=== PATIENT | female | born 1965 | race Caucasian/White ===

== ENCOUNTER 2017-04-03 17:25 | Inpatient (IN) | payer MEDICAID ==
[~2017-04-03] VITALS: Ht 170.2 cm; Wt 87.5 kg
[~2017-04-03 17:25] MED LIST: ALBU10PO INH; ALBU2.5V11 NEB; FLUT1DIS3 INH; LEVO750T26 PO; PRED20TA PO; TIOT18CA INH
[2017-04-03] MEDS ORDERED: MORPHINE SULFATE 4 MG/ML, 1ML IVPush PRN (18:00)
[2017-04-03] MEDS ORDERED: DIPHENHYDRAMINE 50 MG/ML, 1ML IVPush ONE (18:00)
[2017-04-03] MEDS ORDERED: METOCLOPRAMIDE 5 MG/ML, 2ML IVPush ONE (18:00)
[2017-04-03] MEDS ORDERED: SODIUM CHLORIDE 0.9% 1,000ML IVBOLUS ONE (18:00)
[2017-04-03] MEDS ORDERED: FAMOTIDINE 20 MG/2 ML IVP ONE (18:00)
[2017-04-03] MEDS ORDERED: SODIUM CHLORIDE FLUSH 10ML SYR IVF ONE (18:00)
[2017-04-03] MEDS ORDERED: MAALOX/HYOSCYAMINE/LIDOCAINE 45 ML BTL PO ONE (18:00)
[2017-04-03] MEDS ORDERED: DIPHENHYDRAMINE 50 MG/ML, 1ML ONE (18:05)
[2017-04-03] MEDS ORDERED: FAMOTIDINE 20 MG/2 ML ONE (18:05)
[2017-04-03] MEDS ORDERED: METOCLOPRAMIDE 5 MG/ML, 2ML ONE (18:05)
[2017-04-03] MEDS ORDERED: MORPHINE SULFATE 4 MG/ML, 1ML ONE (18:05)
[2017-04-03 18:14] LABS: HEMATOCRIT 45.9 % (34.6-47.8); HEMOGLOBIN 14.8 g/dL (11.7-16.4)
[2017-04-03 18:26] LABS: ASPARTATE AMINO TRANSFERASE 11 U/L (15-37); BLOOD UREA NITROGEN 38 mg/dL (7-18)
[2017-04-03] MEDS ORDERED: hydrALAzine 20 MG/ML, 1ML IVPush PRN (20:30)
[2017-04-03] MEDS ORDERED: SUCRALFATE 1 GM/10 ML UDC PO SCH (21:00)
[2017-04-03] MEDS ORDERED: OMEPRAZOLE 20 MG CAPSULE.DR PO SCH (21:00)
[2017-04-03 21:26] VITALS: BP 144/97
[2017-04-03] MEDS: SODIUM CHLORIDE 0.9% 1,000 ML IV SCH (23:31)
[2017-04-04 03:48] VITALS: BP 110/72
[2017-04-04 05:34] LABS: HEMATOCRIT 37.5 % (34.6-47.8); WHITE BLOOD COUNT 11.7 x10^3/uL (3.4-10)
[2017-04-04 05:43] LABS: BLOOD UREA NITROGEN 31 mg/dL (7-18)
[2017-04-04 08:05] VITALS: BP 99/65
[2017-04-04] MEDS: PANTOPRAZOLE 40 MG IV IVPush SCH (08:28)
[2017-04-04] MEDS: SODIUM CHLORIDE 0.9% 1,000 ML IV SCH ×2 (08:38→18:26)
[2017-04-04] MEDS: morphine SULFATE 10 MG/ML, 1ML IVPush PRN ×3 (08:38→21:41)
[2017-04-04] MEDS: ONDANSETRON 2MG/ML, 2ML IVPush PRN (08:38)
[2017-04-04] MEDS: ALBUTEROL SULFATE 2.5 MG/3 ML NPPB SCH ×3 (09:00→20:20)
[2017-04-04 12:45] VITALS: BP 92/57
[2017-04-04] MEDS: AMPICILLIN/SULBACTAM 1,500 MG in SODIUM CHLORIDE 0.9% 50 ML IV SCH (18:26)
[2017-04-04 20:41] VITALS: BP 93/56
[2017-04-05] MEDS: AMPICILLIN/SULBACTAM 1,500 MG in SODIUM CHLORIDE 0.9% 50 ML IV SCH ×4 (00:03→22:03)
[2017-04-05] MEDS: morphine SULFATE 10 MG/ML, 1ML IVPush PRN ×5 (02:58→21:53)
[2017-04-05 04:05] VITALS: BP 95/52
[2017-04-05] MEDS: SODIUM CHLORIDE 0.9% 1,000 ML IV SCH ×2 (04:47→18:30)
[2017-04-05 07:03] VITALS: BP_SYST 84; BP_SYST 98; BP_DIAS 50; BP_DIAS 63
[2017-04-05] MEDS: PANTOPRAZOLE 40 MG IV IVPush SCH (08:10)
[2017-04-05 10:03] LABS: HCG UR OBC PASS
[2017-04-05] MEDS ORDERED: MIDAZOLAM 1 MG/ML, 2ML ONE (10:07)
[2017-04-05] MEDS ORDERED: PROPOFOL 10 MG/ML, 20ML ONE (10:18)
[2017-04-05] MEDS: ALBUTEROL SULFATE 2.5 MG/3 ML NPPB SCH ×3 (11:10→20:26)
[2017-04-05 13:19] VITALS: BP 104/65
[2017-04-05 15:50] LABS: BLOOD UREA NITROGEN 19 mg/dL (7-18)
[2017-04-05 16:41] LABS: HEMATOCRIT 32.6 % (34.6-47.8); HEMOGLOBIN 10.7 g/dL (11.7-16.4); WHITE BLOOD COUNT 7.8 x10^3/uL (3.4-10)
[2017-04-05] MEDS: ONDANSETRON 2MG/ML, 2ML IVPush PRN ×2 (17:20→23:31)
[2017-04-05 19:22] VITALS: BP 90/53
[2017-04-06 01:31] VITALS: BP 95/66
[2017-04-06] MEDS: morphine SULFATE 10 MG/ML, 1ML IVPush PRN ×2 (03:14→08:55)
[2017-04-06] MEDS: AMPICILLIN/SULBACTAM 1,500 MG in SODIUM CHLORIDE 0.9% 50 ML IV SCH (04:26)
[2017-04-06] MEDS: SODIUM CHLORIDE 0.9% 1,000 ML IV SCH (06:34)
[2017-04-06 07:00] VITALS: BP 114/78
[2017-04-06] MEDS ORDERED: OMEP-110 PO (07:27)
[2017-04-06] MEDS ORDERED: AMOX1TAB12 PO (07:27)
[2017-04-06] MEDS ORDERED: ALBU2.5V11 NEB (07:27)
[2017-04-06] MEDS ORDERED: ALBU10PO INH (07:27)
[2017-04-06] MEDS ORDERED: POTA25TA4 PO (07:27)
[2017-04-06] MEDS: ALBUTEROL SULFATE 2.5 MG/3 ML NPPB SCH (07:36)
[2017-04-06] MEDS ORDERED: POTASSIUM CHLORIDE 20 MEQ PACKET PO SCH (08:00)
[2017-04-06] MEDS: PANTOPRAZOLE 40 MG IV IVPush SCH (08:55)
[2017-04-06] MEDS ORDERED: AMOXICILLIN/CLAV 875-125MG TABLET PO SCH (09:00)
== END 2017-04-06 11:37 | disposition home or self-care (01) | DRG 178 ==
LOC: ED 19:40 → EDIP 20:14 → 4NOR 21:30 → 4WST 04-05 17:30 → DCLOUNGE 04-06 10:42
PROVIDERS: ADMIT Internal Medicine; ATTEND Internal Medicine
PROC: 0DB58ZX Excision of Esophagus, Via Natural or Artificial Opening Endoscopic, Diagnostic (ICD-10-PCS; principal; 2017-04-05 10:00)
DX: J69.0 Pneumonitis due to inhalation of food and vomit (principal); R65.10 Systemic inflammatory response syndrome (SIRS) of non-infectious origin without acute organ dysfunction; K22.10 Ulcer of esophagus without bleeding; K21.0 Gastro-esophageal reflux disease with esophagitis; D25.9 Leiomyoma of uterus, unspecified; F31.9 Bipolar disorder, unspecified; F12.90 Cannabis use, unspecified, uncomplicated; F41.9 Anxiety disorder, unspecified; K29.60 Other gastritis without bleeding; M19.90 Unspecified osteoarthritis, unspecified site; K44.9 Diaphragmatic hernia without obstruction or gangrene; N20.0 Calculus of kidney; Z80.9 Family history of malignant neoplasm, unspecified; Z98.51 Tubal ligation status; Z88.5 Allergy status to narcotic agent
CPT/HCPCS: 36415; 74022; 74177; 80048; 80053; 81001; 81025; 83690; 83735; 85025; 88305; 88312; 93005; 94640; 96361; 96374; 96375; J2250; J2405; J2704; J7613; C9113; J0295; J1200; J2270; J2765; J7030; S0028